=== PATIENT | female | born 1995 | race Caucasian/White ===

== ENCOUNTER 2018-01-25 15:59 | Emergency (ER) | payer BC, OTHER ==
[2018-01-25] MEDS ORDERED: morphine 4 MG/ML VIAL IV (16:52)
[2018-01-25] MEDS: ONDANSETRON 4 MG INJ IV (17:38)
[2018-01-25] MEDS: ACETAMINOPHEN 325 MG TAB PO (17:38)
[2018-01-25] MEDS: SOD CHLORIDE 0.9% 1,000 ML IV (17:38)
[2018-01-25 17:51] LABS: ADD MAN DIFF? NO
[2018-01-25 17:55] LABS: WHITE BLOOD COUNT 23.3 10^3/ul (4.8-10.8)
[2018-01-25 17:55] LABS: ABNORMAL IP MESSAGE 1; BASOPHIL # 0.1 10^3/ul (0.0-0.1); BASOPHILS % 0.3 % (0.0-2.0); HEMATOCRIT 41.3 % (37.0-47.0); HEMOGLOBIN 13.5 g/dl (12.0-16.0); LYMPHOCYTES # 1.2 10^3/ul (0.8-2.9); LYMPHOCYTES % 5.3 % (15.0-51.0); MEAN CORPUSCULAR HGB CONC 32.7 g/dl (32.0-37.0); MEAN CORPUSCULAR VOLUME 91.8 fl (82.0-101.0); MEAN PLATELET VOLUME 9.9 fl (7.4-10.4); MONOCYTES % 8.6 % (0.0-11.0); NEUTROPHIL # 19.8 10^3/ul (1.6-7.5); NEUTROPHILS % 85.1 % (39.0-77.0); PLATELET COUNT 258 10^3/UL (140-415); RED CELL DISTRIBUTION WIDTH 13.5 % (11.5-14.5)
[2018-01-25 18:04] LABS: ADD UMIC YES; UR ASCORBIC ACID NEGATIVE (NEGATIVE); UR BACTERIA FEW /HPF (NONE SEEN); UR BILIRUBIN (Dip) NEGATIVE (NEGATIVE); UR BLOOD (Dip) 3+ mg/dL (NEGATIVE); UR CLARITY SLIGHTLY CLOUDY (CLEAR); UR COLOR YELLOW (YELLOW); UR GLUCOSE (Dip) NEGATIVE (NEGATIVE); UR KETONES (Dip) 1+ mg/dL (NEGATIVE); UR LEUKOCYTE ESTERASE (Dip) 2+ Leu/ul (NEGATIVE); UR MUCUS FEW /HPF (NONE SEEN); UR NITRITE (Dip) NEGATIVE (NEGATIVE); UR RBC > 182 /HPF (0-5); UR SPECIFIC GRAVITY (Dip) 1.017 (1.003-1.030); UR SQUAMOUS EPITHELIAL CELL FEW /HPF (FEW); UR TOTAL PROTEIN (Dip) 1+ mg/dl (NEGATIVE); UR UROBILINOGEN (Dip) NEGATIVE (NEGATIVE); UR WBC 100 /HPF (0-5)
[2018-01-25 18:08] LABS: POSITIVE DIFF @See below
[2018-01-25 18:24] LABS: ALANINE AMINOTRANSFERASE 18 IU/L (13-69); ALBUMIN 4.4 g/dl (3.3-4.9); ALBUMIN/GLOBULIN RATIO 1.12; ALKALINE PHOSPHATASE 100 IU/L (42-121); ANION GAP 17 (8-16); ASPARTATE AMINO TRANSFERASE 16 IU/L (15-46); BILIRUBIN,INDIRECT 1.2 mg/dl (0-1.1); BILIRUBIN,TOTAL 1.2 mg/dl (0.2-1.3); BLOOD UREA NITROGEN 11 mg/dl (7-20); CALCIUM 9.3 mg/dl (8.4-10.2); CARBON DIOXIDE 22 mmol/L (21-31); CHLORIDE 103 mmol/L (97-110); GLUCOSE 99 mg/dl (70-220); LIPASE 24 U/L (23-300); POTASSIUM 4.4 mmol/L (3.5-5.1); SODIUM 138 mmol/L (135-144); TOTAL PROTEIN 8.3 g/dl (6.1-8.1)
[2018-01-25] MEDS: CEFTRIAXONE 1 GM/50 ML (PMX) 50 ML IVPB (19:46)
== END 2018-01-25 20:20 | disposition home or self-care (01) ==
LOC: FTE 15:59
DX: N12 Tubulo-interstitial nephritis, not specified as acute or chronic (principal); Z33.1 Pregnant state, incidental; Z87.891 Personal history of nicotine dependence
CPT/HCPCS: 76705; 76801; 80053; 81001; 81025; 83690; 84702; 85025; 86900; 86901; 87086; 96374; 96375; 99285-25